=== PATIENT | male | born 1985 | race Caucasian/White ===

== ENCOUNTER 2017-10-26 14:09 | Emergency (ER) | payer SELFPAY ==
[~2017-10-26] VITALS: Ht 175.3 cm; Wt 79.0 kg
[2017-10-26] MEDS ORDERED: TETANUS, DIPHTHERIA, PERTUSSIS VAC/PF 0.5ML (>7YR OLD) IM ONE (14:30)
[2017-10-26] MEDS ORDERED: LIDOCAINE HCL 1% 20ML VIAL (Pyxis) INJ MC ONE (14:30)
[2017-10-26] MEDS ORDERED: BACITRACIN ZINC OINT UDPKT TOP ONE (14:30)
[2017-10-26] MEDS ORDERED: LIDOCAINE HCL/PF 1% 10 MG/ML 5ML VIAL IJ NR (14:45)
[2017-10-26] MEDS ORDERED: IBUPROFEN 800MG TABLET PO ONE (17:00)
[2017-10-26 17:08] VITALS: BP 112/70
== END 2017-10-26 17:10 | disposition home or self-care (01) ==
LOC: ER 14:09
DX: S61.512A Laceration without foreign body of left wrist, initial encounter (principal); W25.XXXA Contact with sharp glass, initial encounter; Y93.89 Activity, other specified; Y92.018 Other place in single-family (private) house as the place of occurrence of the external cause
CPT/HCPCS: 73110; 90471; 90715; 99284; A4217; J3490